=== PATIENT | male | born 1975 | race Caucasian/White ===

== ENCOUNTER 2016-12-21 10:11 | Outpatient (CLI) | payer OTHER | END 2016-12-21 10:12 | disposition home or self-care (01) | DX: E78.2 Mixed hyperlipidemia (principal); Z79.899 Other long term (current) drug therapy ==

== ENCOUNTER 2017-02-23 10:48 | Outpatient (CLI) | payer OTHER | END 2017-02-23 10:49 | disposition home or self-care (01) | DX: E78.2 Mixed hyperlipidemia (principal); Z79.899 Other long term (current) drug therapy ==

== ENCOUNTER 2017-11-01 09:03 | Outpatient (CLI) | payer OTHER ==
--- NOTE | 2017-11-01 12:38 | Ultrasound Report ---
DATE OF SERVICE: 11/01/2017 ABDOMINAL ULTRASOUND: 11/01/2017 CLINICAL INDICATION: Left upper quadrant pain. 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 FINDINGS: The liver measures 14.8 cm. Hepatic echogenicity is normal. No intrahepatic biliary dilatation or focal parenchymal lesion is present. The common bile duct measures 4 mm. The gallbladder is normal, as is the visualized head of the pancreas. The pancreatic body and tail are obscured by bowel gas. The kidneys are normal, with the right measuring 11.3 cm, and the left measuring 11.1 cm. The spleen measures 9.3 cm, and demonstrates normal echotexture. The abdominal aorta is normal in caliber. The inferior vena cava is unremarkable. No free fluid is present. IMPRESSION: NORMAL ABDOMINAL ULTRASOUND. TD: 11/01/2017 13:37
== END 2017-11-01 09:04 | disposition home or self-care (01) ==
LOC: DI 09:03
PROVIDERS: ATTEND Internal Medicine
DX: R10.12 Left upper quadrant pain (principal)
CPT/HCPCS: 76700

== ENCOUNTER 2018-09-19 08:49 | Outpatient (CLI) | payer OTHER ==
[2018-09-19 09:31] LABS: ALBUMIN/GLOBULIN RATIO 1.9 (1.0-2.2); ALKALINE PHOSPHATASE 63 IU/L (42-121); ALT ALANINE AMINOTRANSFERASE 40 IU/L (10-60); AST ASPARTATE AMINOTRANSFERASE 27 IU/L (10-42); BILIRUBIN,TOTAL 1.1 mg/dL (0.2-1.0); BUN - BLOOD UREA NITROGEN 13 mg/dL (6-20); CALCIUM 9.4 mg/dL (8.5-10.3); CARBON DIOXIDE - CO2 28 mmol/L (21-32); CHLORIDE 103 mmol/L (101-111); CHOL/HDL RATIO 3.4 (<5.0); CHOLESTEROL 206 mg/dL; CREATININE 0.9 mg/dL (0.6-1.2); GFR - MDRD 93 (>89); GLUCOSE 98 mg/dL (70-100); HDL CHOLESTEROL 61 mg/dL; LDL CHOLESTEROL,CALCULATED 123 mg/dL; SODIUM 136 mmol/L (135-145); TOTAL PROTEIN 7.7 g/dL (6.7-8.2); VLDL CHOLESTEROL 22 mg/dL
== END 2018-09-19 08:50 | disposition home or self-care (01) ==
LOC: LAB 08:49
PROVIDERS: ATTEND Internal Medicine
DX: E78.5 Hyperlipidemia, unspecified (principal)
CPT/HCPCS: 36415; 80053; 80061; 83721

== ENCOUNTER 2018-11-29 08:31 | Outpatient (CLI) | payer BC ==
[2018-11-29 09:46] LABS: ALT ALANINE AMINOTRANSFERASE 36 IU/L (10-60); AST ASPARTATE AMINOTRANSFERASE 25 IU/L (10-42); LDL CHOLESTEROL,DIRECT 94 mg/dL
== END 2018-11-29 08:32 | disposition home or self-care (01) ==
LOC: LAB 08:31
PROVIDERS: ATTEND Internal Medicine
DX: E78.5 Hyperlipidemia, unspecified (principal)
CPT/HCPCS: 36415; 83721; 84450; 84460

== ENCOUNTER 2019-01-04 12:11 | Outpatient (CLI) | payer BC ==
[2019-01-04] MEDS ORDERED: BUFFERED LIDOCAINE 10 ML SYRINGE ONE (12:31)
[2019-01-04] MEDS ORDERED: IOTHALAMATE MEGLUMINE 50 ML VIAL ONE (12:32)
[2019-01-04] MEDS ORDERED: GADOPENTETATE DIMEGLUMINE 5 ML VIAL IVP ONE ×3 (12:33→13:19)
[2019-01-04] MEDS ORDERED: BUFFERED LIDOCAINE 10 ML SYRINGE IU ONE ×2 (13:19)
[2019-01-04] MEDS ORDERED: IOTHALAMATE MEGLUMINE 50 ML VIAL IVP ONE ×2 (13:19)
--- NOTE | 2019-01-04 14:50 | XRAY Report ---
Reason: FEMORAL ACETABULAR IMPINGEMENT Procedure Date: 01/04/2019 Accession Number: [id number] / [id number] Procedure: FL - Arthrogram Needle Placement CPT Code: FULL RESULT: EXAM: RIGHT HIP ARTHROGRAPHIC INJECTION WITH FLUOROSCOPIC GUIDANCE EXAM DATE: 01/04/2019 01:10 PM. CLINICAL HISTORY: Femoroacetabular impingement. COMPARISON: None. TECHNIQUE: The risks, benefits, and alternatives of the procedure were discussed with the patient. All questions were answered. Written and verbal consent were obtained. The hip joint was marked under fluoroscopy and prepped and draped in a sterile manner. Local anesthesia was performed with 1% lidocaine. A 22-gauge needle was then inserted into the hip joint. 10 mL of a solution containing 25% 1% lidocaine, 25% iodinated contrast, and a 1:200 dilution of gadolinium contrast in sterile saline was then injected. The needle was removed without immediate complication. Other: None. Fluoroscopy Time: 49 seconds. Number of Images: 4. FINDINGS: Bones and Joints: No fracture or subluxation. Injection: Fluoroscopic images demonstrate needle placement and contrast in the hip joint. IMPRESSION: Successful fluoroscopically guided arthrographic injection of the hip. [facility]
--- NOTE | 2019-01-04 20:05 | MRI Report ---
Reason: FEMORAL ACETABULAR IMPINGEMENT Procedure Date: 01/04/2019 Accession Number: [id number] / [id number] Procedure: MRI - Arthrogram Hip RT CPT Code: FULL RESULT: EXAM: RIGHT HIP MRI ARTHROGRAM WITH CONTRAST EXAM DATE: 01/04/2019 01:25 PM. CLINICAL HISTORY: FEMORAL ACETABULAR IMPINGEMENT. COMPARISON: Right hip radiographs 12/18/2018.. TECHNIQUE: Multiplanar, multisequence T1-weighted and fluid-sensitive, small [id number] sequences of the hip and large [id number] sequences of the pelvis after an arthrographic injection of dilute gadolinium, dictated under a separate exam. Other: None. FINDINGS: Bones: No fractures or subluxations. No marrow edema or bone lesions. Right Hip: No acetabular retroversion. Femoral head/neck offset decreased, with a prominent osseous bump at the femoral head-neck junction and an alpha angle measuring 80 degrees. No loose bodies. There is a 0.7 x 1.5 cm area of deep partial thickness cartilage loss at the superior acetabulum (series 601 image 16 and series 701 image 15). Contrast undermines the anterior labrum from the 12:00 to 3 o'clock position. The posterior labrum is normal. The ligamentum teres is intact. Other Joints: The visualized lumbar spine, sacroiliac joints, symphysis pubis, and contralateral hip are unremarkable. Musculature: No edema or fatty atrophy. The gluteus medius and minimus tendons are normal. The visualized hamstring tendons are normal. The ischiofemoral space is normal. Pelvic Cavity: The visualized viscera are unremarkable. No lymphadenopathy. No free fluid in the pelvis. Contrast dissects beneath the psoas muscle, likely secondary to filling of the iliopsoas bursa from the hip joint. Other: The visualized sciatic nerves are unremarkable. No bursitis. The subcutaneous tissues are unremarkable. IMPRESSION: 1. 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 Findings suggest femoroacetabular impingement. 2. Deep partial thickness cartilage loss at the chondrolabral junction of the superior acetabulum over an area measuring 0.7 x 1.5 cm. No subchondral edema. [facility] MUSCULOSKELETAL RADIOLOGY SECTION
== END 2019-01-04 12:12 | disposition home or self-care (01) ==
LOC: DI 12:11
PROVIDERS: ATTEND Orthopaedic Surgery Sports Medicine
DX: S73.191A Other sprain of right hip, initial encounter (principal); M25.851 Other specified joint disorders, right hip
CPT/HCPCS: 27093; 73722; 77002; Q9961

== ENCOUNTER 2019-12-02 08:24 | Outpatient (CLI) | payer BC ==
[2019-12-02 08:39] LABS: BASOPHILS % (AUTO) 0.4 %; EOSINOPHILS # (AUTO) 0.1 10^3/uL (0.0-0.7); HGB - HEMOGLOBIN 15.4 g/dL (14.0-18.0); LYMPHOCYTES # (AUTO) 2.2 10^3/uL (1.5-3.5); LYMPHOCYTES % (AUTO) 44.7 %; MEAN CORPUSCULAR HGB CONC 35.5 g/dL (32.0-36.0); MEAN CORPUSCULAR VOLUME 93.1 fL (80.0-94.0); MEAN PLATELET VOLUME 10.2 fL (7.4-11.4); MONOCYTES # (AUTO) 0.4 10^3/uL (0.0-1.0); NEUTROPHILS # (AUTO) 2.2 10^3/uL (1.5-6.6); NEUTROPHILS % (AUTO) 44.7 %; PLT - PLATELET COUNT 197 10^3/uL (130-450); RED BLOOD COUNT 4.66 10^6/uL (4.70-6.10); WHITE BLOOD COUNT 4.9 x10^3/uL (4.8-10.8)
[2019-12-02 08:57] LABS: ALBUMIN 4.4 g/dL (3.2-5.5); ALBUMIN/GLOBULIN RATIO 1.6 (1.0-2.2); ALKALINE PHOSPHATASE 63 IU/L (42-121); ALT ALANINE AMINOTRANSFERASE 40 IU/L (10-60); AST ASPARTATE AMINOTRANSFERASE 23 IU/L (10-42); BILIRUBIN,TOTAL 0.8 mg/dL (0.2-1.0); BUN - BLOOD UREA NITROGEN 19 mg/dL (6-20); CALCIUM 9.4 mg/dL (8.5-10.3); CARBON DIOXIDE - CO2 27 mmol/L (21-32); CHLORIDE 103 mmol/L (101-111); CHOL/HDL RATIO 2.4 (<5.0); CHOLESTEROL 136 mg/dL; CREATININE 0.9 mg/dL (0.6-1.2); GFR - MDRD 93 (>89); GLUCOSE 107 mg/dL (70-100); HDL CHOLESTEROL 56 mg/dL; LDL CHOLESTEROL,CALCULATED 64 mg/dL; LDL/HDL RATIO 1.1 (<3.6); SODIUM 138 mmol/L (135-145); TOTAL PROTEIN 7.1 g/dL (6.7-8.2); VLDL CHOLESTEROL 16 mg/dL
== END 2019-12-02 08:25 | disposition home or self-care (01) ==
LOC: LAB 08:24
PROVIDERS: ATTEND Family Medicine
DX: M25.562 Pain in left knee (principal); M50.20 Other cervical disc displacement, unspecified cervical region; R78.5 Finding of other psychotropic drug in blood; J30.2 Other seasonal allergic rhinitis; J45.909 Unspecified asthma, uncomplicated
CPT/HCPCS: 36415; 80053; 80061; 83721; 85025

== ENCOUNTER 2020-09-04 08:00 | Outpatient (CLI) | payer BC | END 2020-09-04 23:59 | disposition home or self-care (01) | LOC: LAB.R 08:00 | PROVIDERS: ATTEND Family Medicine | DX: R11.2 Nausea with vomiting, unspecified (principal); Z20.828 Contact with and (suspected) exposure to other viral communicable diseases | CPT/HCPCS: 87275; 87276 ==

== ENCOUNTER 2020-12-29 08:18 | Outpatient (CLI) | payer BC ==
[2020-12-29 08:36] LABS: BASOPHILS % (AUTO) 0.4 %; EOSINOPHILS # (AUTO) 0.1 10^3/uL (0.0-0.7); EOSINOPHILS % (AUTO) 1.3 %; HGB - HEMOGLOBIN 15.7 g/dL (14.0-18.0); LYMPHOCYTES # (AUTO) 2.1 10^3/uL (1.5-3.5); LYMPHOCYTES % (AUTO) 37.8 %; MEAN CORPUSCULAR HEMOGLOBIN 32.6 pg (27.0-31.0); MEAN CORPUSCULAR HGB CONC 34.9 g/dL (32.0-36.0); MEAN CORPUSCULAR VOLUME 93.4 fL (80.0-94.0); MEAN PLATELET VOLUME 10.4 fL (7.4-11.4); MONOCYTES # (AUTO) 0.5 10^3/uL (0.0-1.0); NEUTROPHILS # (AUTO) 2.9 10^3/uL (1.5-6.6); NEUTROPHILS % (AUTO) 51.3 %; PLT - PLATELET COUNT 222 10^3/uL (130-450); RED BLOOD COUNT 4.82 10^6/uL (4.70-6.10); RED CELL DISTRIBUTION WIDTH 12.4 % (12.0-15.0); WHITE BLOOD COUNT 5.6 x10^3/uL (4.8-10.8)
[2020-12-29 08:52] LABS: ALBUMIN 5.1 g/dL (3.2-5.5); ALBUMIN/GLOBULIN RATIO 1.9 (1.0-2.2); ALKALINE PHOSPHATASE 73 IU/L (42-121); ALT ALANINE AMINOTRANSFERASE 49 IU/L (10-60); AST ASPARTATE AMINOTRANSFERASE 28 IU/L (10-42); BILIRUBIN,TOTAL 1.4 mg/dL (0.2-1.0); BUN - BLOOD UREA NITROGEN 18 mg/dL (6-20); CALCIUM 9.6 mg/dL (8.5-10.3); CARBON DIOXIDE - CO2 27 mmol/L (21-32); CHLORIDE 101 mmol/L (101-111); CHOL/HDL RATIO 2.5 (<5.0); CHOLESTEROL 170 mg/dL; CREATININE 1.1 mg/dL (0.6-1.2); GFR - MDRD 73 (>89); GLUCOSE 103 mg/dL (70-100); HDL CHOLESTEROL 69 mg/dL; POTASSIUM 3.8 mmol/L (3.5-5.0); SODIUM 135 mmol/L (135-145); TOTAL PROTEIN 7.8 g/dL (6.7-8.2); TRIGLYCERIDES 38 mg/dL
[2020-12-29 09:02] LABS: THYROID STIMULATING HORMONE 2.14 uIU/mL (0.34-5.60)
== END 2020-12-29 08:19 | disposition home or self-care (01) ==
LOC: LAB 08:18
PROVIDERS: ATTEND Family Medicine
DX: E78.5 Hyperlipidemia, unspecified (principal)
CPT/HCPCS: 36415; 80053; 80061; 83721; 84443; 85025